=== PATIENT | female | born 1930 | race Caucasian/White ===

== ENCOUNTER 2016-06-11 19:11 | Emergency (ER) | payer MEDICARE, OTHER ==
--- NOTE | 2016-06-11 20:37 | ED ---
Doris Martinez Erika, scribed for Riley Rebolledo MD on 06/11/16 at 1953 . Complex/Multi-Sys Presentation - HPI Summary HPI Summary: Patient is an 86-year-old female presenting to the ED with a CC of weakness. Per EMS, patient lives at [facility], and was complaining of headache, weakness , and nausea for the past few hours. In the ED, patient denies any symptoms, including nausea and headache. She responds "I don't know" when asked if she is in any pain or if anything hurts. She states she is not hungry. LEVEL 5 CAVEAT - DEMENTIA. - History Of Current Complaint Time Seen by Provider: 06/11/16 19:21 Hx Obtained From: Patient, EMS Hx From Patient Unobtainable Due To: Dementia Onset/Duration: Resolved Associated Signs And Symptoms: Positive: Weakness, Headache, Nausea - Allergies/Home Medications Allergies/Adverse Reactions: Allergies Allergy/AdvReac Type Severity Reaction Status Date / Time No Known Allergies Allergy Verified 10/13/14 13:18 PMH/Surg Hx/FS Hx/Imm Hx Neurological History: Reports: Hx Dementia Psychiatric History: Reports: Hx Anxiety, Hx Depression - Surgical History Surgery Procedure, Year, and Place: eye surgery Infectious Disease History: Denies: History Other Infectious Disease - Family History Known Family History: Positive: Unknown - LEVEL 5 CAVEAT - Social History Lives: [facility] Alcohol Use: None Hx Substance Use: No Substance Use Type: Reports: None Hx Tobacco Use: No Smoking Status (MU): Never Smoked Tobacco Review of Systems - ROS Summary Review of Systems Summary: LEVEL 5 CAVEAT - DEMENTIA. Positive: Nausea Positive: Headache, Weakness All Other Systems Reviewed And Are Negative: No Physical Exam Triage Information Reviewed: Yes Vital Signs On Initial Exam: Temp Pulse Resp BP Pulse Ox 97.3 F 99 16 158/58 93 06/11/16 19:16 06/11/16 19:33 06/11/16 19:16 06/11/16 19:16 06/11/16 19:33 Vital Signs Reviewed: Yes Appearance: Positive: Well-Appearing, No Pain Distress Skin: Positive: Warm Head/Face: Positive: Normal Head/Face Inspection Eyes: Positive: KEILY ENT: Positive: Hearing grossly normal Neck: Positive: Supple Respiratory/Lung Sounds: Positive: Breath Sounds Present Cardiovascular: Positive: RRR Abdomen Description: Positive: Nontender, Soft Bowel Sounds: Positive: Present Musculoskeletal: Positive: Strength/ROM Intact Neurological: Positive: Sensory/Motor Intact Psychiatric: Positive: Affect/Mood Appropriate Diagnostics - Vital Signs Vital Signs Temp Pulse Resp BP Pulse Ox 06/11/16 20:00 83 141/102 97 06/11/16 19:55 160/72 06/11/16 19:33 99 93 06/11/16 19:16 97.3 F 86 16 158/58 94 06/11/16 19:14 158/58 - Laboratory Lab Statement: Any lab studies that have been ordered have been reviewed, and results considered in the medical decision making process. Re-Evaluation - Re-Evaluation First Eval Re-Evaluation Time: 21:42 Change: Improved Comment: Patient is tolerating liquids well. Family member present. Pt will be discharged at this time Complex Multi-Symp Course/Dx Assessment/Plan: An 86 y/o F presents to the ED. EMS reports that pt was complaining of nausea, headache, and weakness at her [place] [facility]. Upon arrival to the ED, patient denies any symptoms. Patient is PO challenged in the ED and is able to tolerate liquids well. Patient will be discharged to the [place] [facility] with follow up from her PCP, and pt and pt's nephew agree with this plan. - Diagnoses Provider Diagnoses: Nausea Discharge - Discharge Plan Condition: Stable Disposition: HOME Patient Education Materials: Acute Nausea and Vomiting (ED) Referrals: Skye Bain, [facility] [Primary Care Provider] - Additional Instructions: Please follow up with your PCP. The documentation as recorded by the Doris bloom Erika accurately reflects the service I personally performed and the decisions made by , Riley Rebolledo MD.
[2016-06-11 22:12] VITALS: BP 160/74
== END 2016-06-11 23:15 | disposition home or self-care (01) ==
LOC: ED 19:11
DX: R11.2 Nausea with vomiting, unspecified (principal); R51 Headache; R53.1 Weakness; F03.90 Unspecified dementia, unspecified severity, without behavioral disturbance, psychotic disturbance, mood disturbance, and anxiety
CPT/HCPCS: 99284

== ENCOUNTER 2017-04-21 20:21 | Inpatient (IN) | payer MEDICARE, OTHER ==
[2017-04-21] MEDS ORDERED: NS 0.9% 1000 ML* 1,000 ML IV ONE (20:47)
[2017-04-21 21:27] LABS: ABS Basophils 0.1 10^3/ul (0-0.2); ABS Eosinophils 0.2 10^3/ul (0-0.6); ABS Lymphocytes 1.9 10^3/ul (1.0-4.8); ABS Monocytes 0.6 10^3/ul (0-0.8); ABS Neutrophils 5.3 10^3/ul (1.5-7.7); ABS Nucleated RBC 0 10^3/ul; Eosinophil % 2.4 % (0-6); Hematocrit 32 % (35-47); Hemoglobin 10.7 g/dl (12.0-16.0); Lymphocyte % 23.6 % (25-47); Mean Corpuscular HGB Conc 34 g/dl (31-36); Mean Corpuscular Hemoglobin 30 pg (27-31); Mean Corpuscular Volume 88 fL (80-97); Mean Platelet Volume 8 um3 (7.4-10.4); Nucleated Red Blood Cells % 0; Platelet Count 241 10^3/ul (150-450); Red Blood Count 3.59 10^6/ul (4.0-5.4); Red Cell Distribution Width 15 % (10.5-15)
[2017-04-21 21:50] LABS: EGFR Non-African American 57.2 (>60)
[2017-04-21] MEDS ORDERED: Pantoprazole IV* 40 MG IV ONE (22:57)
[2017-04-22] MEDS ORDERED: Ondansetron INJ* 2 MG/ML VIAL IV PRN (00:39)
[2017-04-22] MEDS ORDERED: PROCHLORPERAZINE INJ 5 MG/ML 2 ML VIAL IV PRN (00:40)
[2017-04-22] MEDS ORDERED: NS 0.9% 1000 ML* 1,000 ML IV ONE (01:14)
[2017-04-22 01:21] LABS: Hematocrit 27 % (35-47); Hemoglobin 8.8 g/dl (12.0-16.0)
--- NOTE | 2017-04-22 01:21 | PN ---
Progress Note - Progress Note Date of Service: 04/22/17 Note: When pt arrived to the floor she was attempted to stand to get weighed and then began to retch but not vomit. She was transferred to the bed and was found to have had a very large red bloody BM, few small clots noted. Additionally the patient had a large bloody BM just prior to transfer to the floor. I am concerned that the patient may be having an upper GI bleed given her use of naproxen on a daily basis and her BUN being elevated. I have explained to the patient's nephew (at the hospital) and niece/HCP (by phone) that I am concerned for upper GI bleed. I offered the placement of an NG tube to evaluate for possible UGIB. They do not wish to pursue that. I have also offered transfer to a facility that has GI available for urgent EGD. They have discussed current options which I have explained as transfer for GI eval and EGD, medical management with IVF and blood transfusion vs comfort care. At this time they do not want to pursue transfer. Will await repeat blood draw results. If H/H dropped significantly will transfuse blood. Continue protonix drip and IVF. If she continues to bleed profusely they stated they will want to pursue comfort measures only at that time.
[2017-04-22] MEDS ORDERED: Pantoprazole IV* 40 MG ONE (03:14)
[2017-04-22] MEDS: Pantoprazole IV* 80 MG in NS 0.9% 250 ML* 250 ML IVPB SCH ×2 (03:23→12:15)
[2017-04-22] MEDS: NS 0.9% 1000 ML* 1,000 ML IV SCH ×2 (03:23→05:42)
[2017-04-22 06:28] LABS: Hematocrit 29 % (35-47); Hemoglobin 9.7 g/dl (12.0-16.0); Mean Corpuscular HGB Conc 34 g/dl (31-36); Mean Corpuscular Hemoglobin 29 pg (27-31); Mean Corpuscular Volume 87 fL (80-97); Mean Platelet Volume 9 um3 (7.4-10.4); Platelet Count 190 10^3/ul (150-450); Red Cell Distribution Width 15 % (10.5-15); White Blood Count 6.4 10^3/ul (3.5-10.8)
[2017-04-22 06:39] LABS: INR 0.95 (0.77-1.02)
--- NOTE | 2017-04-22 07:47 | RAD ---
Indication: Rectal bleeding. Comparison: November 19, 2014 CT. Technique: Supine and LEFT lateral decubitus abdomen views. Report: Negative for free air. Moderately large volume of stool present throughout the colon with only mild rectal distention. Negative for dilated bowel loops or significant air-fluid levels. Coarse calcifications at the level of the prostate consistent with chronic pancreatitis. RIGHT pelvic calcified uterine fibroid noted. Negative for mass effect. IMPRESSION: Negative for free air or bowel obstruction.
[2017-04-22] MEDS: Citalopram TAB* 10 MG PO SCH (08:21)
--- NOTE | 2017-04-22 09:23 | PN ---
Subjective Date of Service: 04/22/17 Interval History: Patient offers no c/o. She denies hunger, pain, nausea. Objective Active Medications: Citalopram Hydrobromide (Celexa Tab*) 5 mg PO QAM [facility] Last Admin: 04/22/17 08:21 Dose: 5 mg Sodium Chloride (Ns 0.9% 1000 Ml*) 1,000 mls @ 75 mls/hr IV PER RATE [facility] Stop: 04/22/17 12:19 Last Admin: 04/22/17 05:42 Dose: 75 mls/hr Pantoprazole Sodium 80 mg/ (Sodium Chloride) 250 mls @ 25 mls/hr IVPB Q10H [facility] Last Admin: 04/22/17 03:23 Dose: 25 mls/hr Mirtazapine (Remeron Tab*) 7.5 mg PO BEDTIME [facility] Ondansetron HCl (Zofran Inj*) 4 mg IV Q6H PRN PRN Reason: NAUSEA Prochlorperazine Edisylate (Compazine Inj*) 10 mg IV Q6H PRN PRN Reason: NAUSEA/VOMITING Oxygen Devices in Use Now: None Appearance: Alert, partly up in bed. In good spirits. Looks comfortable. Passive. Eyes: No Scleral Icterus Neck: NL Appearance and Movements; NL JVP, No Thyroid Enlargement, Masses Respiratory: Symmetrical Chest Expansion and Respiratory Effort, Clear to Auscultation, Clear to Percussion Cardiovascular: NL Sounds; No Murmurs; No JVD, RRR, No Edema, - Abdominal: NL Sounds; No Tenderness; No Distention, No Hepatosplenomegaly, - Extremities: No Edema, No Clubbing, Cyanosis, - Skin: No Rash or Ulcers, No Nodules or Sclerosis, - Neurological: NL Sensation - Oriented to person only. Fair verbal skills. She states she has 2 nephews but can't remember the name of either one. She gave her age as "old enough to know better" Result Diagrams: 04/22/17 06:14 04/22/17 06:14 Assess/Plan/Problems-Billing Assessment: - Patient Problems (1) Dementia Current Visit: Yes Status: Acute Code(s): F03.90 - UNSPECIFIED DEMENTIA WITHOUT BEHAVIORAL DISTURBANCE SNOMED Code(s): 48931983 Comment: I spoke to her nephew Valerio Matias. He agrees to comfort measures only. He will talk to his cousin in [place] who is the HCP. Hospice referral made. CM spoke with [facility] and they cannot accept her back until 04/24. Comfort care, MS, atropine, lorazepam ordered. (2) GI bleed Current Visit: Yes Status: Acute Code(s): K92.2 - GASTROINTESTINAL HEMORRHAGE, UNSPECIFIED SNOMED Code(s): 71027341 Comment: No more NSAID's. Omeprazole 20 mg bid ordered. Nephew understands that no blood tests or transfusions will be done.
--- NOTE | 2017-04-22 11:05 | HP ---
CC: Skye Bain NP.* HISTORY AND PHYSICAL: DATE OF ADMISSION: 04/21/17 PRIMARY CARE PROVIDER: Skye Bain NP. CHIEF COMPLAINT: Bright red blood per rectum. HISTORY OF PRESENT ILLNESS: Ms. Sanchez is an 87-year-old female who has a history of dementia, who is sent over from [place] after she had multiple bloody bowel movements. The note that came over from [facility] stated that she did complain of abdominal pain; however, currently she states she does not have any abdominal pain. The patient has advanced dementia and really is unable to provide any significant history. She does deny shortness of breath and she denies chest pain. PAST MEDICAL HISTORY: 1. Dementia. 2. Anxiety. 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 Other surgical history is unknown. MEDICATIONS: 1. Guaifenesin ER 600 mg p.o. q. 12 hours p.r.n. congestion. 2. Senna 2 tabs p.o. b.i.d. 3. Naproxen 375 mg p.o. daily. 4. Muscle rub cream 35 g topically twice daily. 5. Remeron 7.5 mg p.o. q. h.s. 6. Celexa 5 mg p.o. daily. ALLERGIES: No known drug allergies. FAMILY HISTORY: Unobtainable. SOCIAL HISTORY: The patient is . She has no children. Her niece Alpa is her power of workers compensation attorney and health care proxy. Her nephew Valerio lives locally and helps out in visits at [facility]. The patient reportedly does not smoke. REVIEW OF SYSTEMS: Essentially unobtainable. PHYSICAL EXAMINATION GENERAL: The patient is a well-developed elderly female lying in bed, in no acute distress. VITAL SIGNS: Blood pressure 122/52, pulse 90, respirations 21, temp 97.7, and O2 sat 98% on room air. HEENT: Pupils are equal and round. Extraocular movements intact. Oropharynx is clear. Oral mucosa is moist. There is no submandibular, cervical, or supraclavicular adenopathy. PULMONARY: Lungs are clear to auscultation bilaterally. CARDIAC: Normal S1 and S2. Regular, rate, and rhythm. There is a 2/6 systolic murmur heard best at the left sternal border. There is no lower extremity edema. ABDOMEN: Bowel sounds present. Abdomen is soft, nontender, and nondistended. MUSCULOSKELETAL: There is no cyanosis or clubbing of the digits. There is full active range of motion of all 4 extremities. SKIN: Warm and dry. There are no rashes. NEUROLOGIC: The patient has no focal deficits. She is quite confused. At one point she tries to touch my nose. PSYCH: Affect appears appropriate. LABORATORY DATA: WBC 8.0, hemoglobin 10.7, hematocrit 32, platelets 241. Sodium 137, potassium 4.1, chloride 103, CO2 of 28, BUN 30, creatinine 0.93, glucose 103, calcium 9.1, bilirubin 0.2, AST 24, ALT 15, alk phos 70, albumin 3.6. Abdominal x- ray to my evaluation, it appears the patient has a nonspecific bowel gas pattern. Significant amount of stool is noted. No free air is noted. ASSESSMENT AND PLAN: Ms. Sanchez is an 87-year-old female who has a history of dementia and anxiety who resides at [facility], now presents to the emergency room with bright red blood per rectum. 1. Bright red blood per rectum. The patient reportedly had bright red blood in her Depends; however, in the emergency room rectal exam revealed maroon to shruti colored stool. The patient's BUN is elevated at 30. She does take naproxen on a daily basis and I am suspicious her bleed may in fact be an upper GI bleed. Her hemoglobin is essentially stable from where it was approximately 1 month ago. The patient will have a follow up hemoglobin and hematocrit at approximately midnight tonight and then again in the morning. The patient has been typed and screened. At this point, I will not transfuse the patient. There is no GI coverage this evening. Tomorrow we will attempt to get GI evaluation for possible EGD. She will be on a clear liquid diet for now. I will also go ahead and start a Protonix drip given the elevated BUN and suspicion for upper GI bleed. 2. Anxiety. I will continue the patient's Celexa and Remeron. 3. Dementia. Continue supportive care. 4. DVT prophylaxis. According to the Adult Thrombosis Prophylaxis Risk Factor Assessment Guide the patient has a total risk factor score of 3 making her high risk. SCDs alone will be utilized as DVT prophylaxis. Code stats is DNR based on the patient's nephew's understanding of her prior wishes and out of hospital DNR that came from [facility]. TIME SPENT: 55 minutes was spent admitting this patient. [id number]/[facility] [place] #: [id number] MTDReina
[2017-04-22] MEDS ORDERED: LORazepam TAB(*) 0.5 MG SL PRN (11:13)
[2017-04-22] MEDS ORDERED: Morphine ORAL CONCENTRATE* 5 MG/0.25 ML ORAL.SYRIN SL PRN (11:13)
[2017-04-22] MEDS ORDERED: Atropine 1% (ORAL/SL)* 15 ML BTL SL PRN (11:13)
--- NOTE | 2017-04-22 20:53 | ED ---
Kannan Martinez Jennifer, scribed for Mynor Nogueira MD on 04/21/17 at 2048 . GI/ HPI - HPI Summary HPI Summary: The patient is an 87 year old female who presents with 3 episodes of GI bleeding that began today. She lives in [place] and was accompanied by a house aid who gave the history today. The patient has pain when she walks, but she denies abdominal pain. The patient has a history of Alzheimers disease and did not know she was in the ED today. LEVEL 5 CAVEAT: HPI limited due to dementia. - History of Current Complaint Chief Complaint: EDGIBleed Stated Complaint: RECTAL BLEEDING Hx Obtained From: Patient, Family/Link Cutter - housekeeping aid at [facility] Hx From Patient Unobtainable Due To: Dementia Onset/Duration: Started Hours Ago - this morning, Still Present Severity: Mild Current Severity: Mild Pain Intensity: 0 Associated Signs and Symptoms: Positive: Bright Red Blood w/Stool - 3 episodes. Negative: Abdominal Pain Aggravating Factor(s): Nothing Alleviating Factor(s): Nothing - Allergy/Home Medications Allergies/Adverse Reactions: Allergies Allergy/AdvReac Type Severity Reaction Status Date / Time No Known Allergies Allergy Verified 10/13/14 13:18 Home Medications: Home Medications Methyl Salicylate/Menthol [Muscle Rub Cream] 35 gm TOPICAL BID 04/21/17 [ History Confirmed 04/21/17] Naproxen TAB* [Naprosyn 375 mg TAB*] 375 mg PO DAILY WITH MEAL 04/21/17 [ History Confirmed 04/21/17] PMH/Surg Hx/FS Hx/Imm Hx Neurological History: Reports: Hx Dementia Psychiatric History: Reports: Hx Anxiety, Hx Depression - Surgical History Surgery Procedure, Year, and Place: eye surgery Infectious Disease History: No Infectious Disease History: Denies: History Other Infectious Disease, Traveled Outside the [place] in Last 30 Days - Family History Known Family History: Positive: Unknown - LEVEL 5 CAVEAT - Social History Alcohol Use: None Hx Substance Use: No Substance Use Type: Reports: None Hx Tobacco Use: No Smoking Status (MU): Never Smoked Tobacco Review of Systems Cardiovascular: Negative Respiratory: Negative Gastrointestinal: Other Positive: Other. Negative: Abdominal Pain Genitourinary: Other - Bloody stool Positive: dysuria Musculoskeletal: Negative Skin: Negative Neurological: Negative, Other Psychological: Other Positive: Anxious All Other Systems Reviewed And Are Negative: Yes - Comments Additional Review of Systems Comments: LEVEL 5 CAVEAT: ROS limited due to dementia. Physical Exam - Summary Physical Exam Summary: Appearance: Well-appearing, Well-nourished, no acute distress, forgetful, pleasant. No masses. Skin: Warm, Dry, No rash Eyes: Normal, PERRL, EOMI, sclera anicteric, normal conjunctival color. ENT: Normal Neck: Supple, nontender Respiratory: Clear to auscultation Cardiovascular: S1, S2, no murmur, no rub, no gallop Abdomen: Soft, nontender, no organomegaly Bowel sounds: Present. Rectal exam showed maroon stool. Musculoskeletal: Normal, Strength/ROM Intact, no edema, pulses symmetrical Neurological: Normal, A&Ox2, cranial nerves II-XII WNL, follows commands, gait not tested, sensation intact to pin and light touch Psychiatric: affect normal, behavior appropriate, dressed appropriately, judgment intact LEVEL 5 CAVEAT: Physical exam limited due to dementia. Triage Information Reviewed: Yes Vital Signs On Initial Exam: Initial Vitals Temp Pulse Resp BP Pulse Ox 97.7 F 68 20 148/39 95 04/21/17 20:24 04/21/17 20:24 04/21/17 20:24 04/21/17 20:24 04/21/17 20:24 Vital Signs Reviewed: Yes Diagnostics - Vital Signs Vital Signs Temp Pulse Resp BP Pulse Ox 04/21/17 20:24 97.7 F 68 20 148/39 95 - Laboratory Lab Results: Lab Results 04/21/17 04/21/17 04/21/17 Range/Units 20:15 20:15 20:15 WBC 8.0 (3.5-10.8) 10^3/ul RBC 3.59 L (4.0-5.4) 10^6/ul Hgb 10.7 L (12.0-16.0) g/dl Hct 32 L (35-47) % MCV 88 (80-97) fL MCH 30 (27-31) pg MCHC 34 (31-36) g/dl RDW 15 (10.5-15) % Plt Count 241 (150-450) 10^3/ul MPV 8 (7.4-10.4) um3 Neut % (Auto) 65.9 (38-83) % Lymph % (Auto) 23.6 L (25-47) % [place] % (Auto) 7.1 (1-9) % Eos % (Auto) 2.4 (0-6) % Baso % (Auto) 1.0 (0-2) % Absolute Neuts (auto) 5.3 (1.5-7.7) 10^3/ul Absolute Lymphs (auto) 1.9 (1.0-4.8) 10^3/ul Absolute Monos (auto) 0.6 (0-0.8) 10^3/ul Absolute Eos (auto) 0.2 (0-0.6) 10^3/ul Absolute Basos (auto) 0.1 (0-0.2) 10^3/ul Absolute Nucleated RBC 0 10^3/ul Nucleated RBC % 0 INR (Anticoag Therapy) (0.77-1.02) Sodium 137 (133-145) mmol/L Potassium 4.1 (3.5-5.0) mmol/L Chloride 103 (101-111) mmol/L Carbon Dioxide 28 (22-32) mmol/L Anion Gap 6 (2-11) mmol/L BUN 30 H (6-24) mg/dL Creatinine 0.93 (0.51-0.95) mg/dL Est GFR ( Amer) 73.5 (>60) Est GFR (Non-Af Amer) 57.2 (>60) BUN/Creatinine Ratio 32.3 H (8-20) Glucose 103 H (70-100) mg/dL Calcium 9.1 (8.6-10.3) mg/dL Total Bilirubin 0.20 (0.2-1.0) mg/dL AST 24 (13-39) U/L ALT 15 (7-52) U/L Alkaline Phosphatase 70 (34-104) U/L Total Protein 6.6 (6.4-8.9) g/dL Albumin 3.6 (3.2-5.2) g/dL Globulin 3.0 (2-4) g/dL Albumin/Globulin Ratio 1.2 (1-3) Blood Type O Positive Antibody Screen Negative Crossmatch See Detail 04/22/17 04/22/17 04/22/17 Range/Units 01:09 06:14 06:14 WBC (3.5-10.8) 10^3/ul RBC (4.0-5.4) 10^6/ul Hgb 8.8 L (12.0-16.0) g/dl Hct 27 L (35-47) % MCV (80-97) fL MCH (27-31) pg MCHC (31-36) g/dl RDW (10.5-15) % Plt Count (150-450) 10^3/ul MPV (7.4-10.4) um3 Neut % (Auto) (38-83) % Lymph % (Auto) (25-47) % [place] % (Auto) (1-9) % Eos % (Auto) (0-6) % Baso % (Auto) (0-2) % Absolute Neuts (auto) (1.5-7.7) 10^3/ul Absolute Lymphs (auto) (1.0-4.8) 10^3/ul Absolute Monos (auto) (0-0.8) 10^3/ul Absolute Eos (auto) (0-0.6) 10^3/ul Absolute Basos (auto) (0-0.2) 10^3/ul Absolute Nucleated RBC 10^3/ul Nucleated RBC % INR (Anticoag Therapy) 0.95 (0.77-1.02) Sodium 138 (133-145) mmol/L Potassium 4.6 (3.5-5.0) mmol/L Chloride 112 H (101-111) mmol/L Carbon Dioxide 22 (22-32) mmol/L Anion Gap 4 (2-11) mmol/L BUN 30 H (6-24) mg/dL Creatinine 0.79 (0.51-0.95) mg/dL Est GFR ( Amer) 88.7 (>60) Est GFR (Non-Af Amer) 69.0 (>60) BUN/Creatinine Ratio 38.0 H (8-20) Glucose 109 H (70-100) mg/dL Calcium 7.8 L (8.6-10.3) mg/dL Total Bilirubin (0.2-1.0) mg/dL AST (13-39) U/L ALT (7-52) U/L Alkaline Phosphatase (34-104) U/L Total Protein (6.4-8.9) g/dL Albumin (3.2-5.2) g/dL Globulin (2-4) g/dL Albumin/Globulin Ratio (1-3) Blood Type Antibody Screen Crossmatch 04/22/17 Range/Units 06:14 WBC 6.4 (3.5-10.8) 10^3/ul RBC 3.30 L (4.0-5.4) 10^6/ul Hgb 9.7 L (12.0-16.0) g/dl Hct 29 L (35-47) % MCV 87 (80-97) fL MCH 29 (27-31) pg MCHC 34 (31-36) g/dl RDW 15 (10.5-15) % Plt Count 190 (150-450) 10^3/ul MPV 9 (7.4-10.4) um3 Neut % (Auto) (38-83) % Lymph % (Auto) (25-47) % [place] % (Auto) (1-9) % Eos % (Auto) (0-6) % Baso % (Auto) (0-2) % Absolute Neuts (auto) (1.5-7.7) 10^3/ul Absolute Lymphs (auto) (1.0-4.8) 10^3/ul Absolute Monos (auto) (0-0.8) 10^3/ul Absolute Eos (auto) (0-0.6) 10^3/ul Absolute Basos (auto) (0-0.2) 10^3/ul Absolute Nucleated RBC 10^3/ul Nucleated RBC % INR (Anticoag Therapy) (0.77-1.02) Sodium (133-145) mmol/L Potassium (3.5-5.0) mmol/L Chloride (101-111) mmol/L Carbon Dioxide (22-32) mmol/L Anion Gap (2-11) mmol/L BUN (6-24) mg/dL Creatinine (0.51-0.95) mg/dL Est GFR ( Amer) (>60) Est GFR (Non-Af Amer) (>60) BUN/Creatinine Ratio (8-20) Glucose (70-100) mg/dL Calcium (8.6-10.3) mg/dL Total Bilirubin (0.2-1.0) mg/dL AST (13-39) U/L ALT (7-52) U/L Alkaline Phosphatase (34-104) U/L Total Protein (6.4-8.9) g/dL Albumin (3.2-5.2) g/dL Globulin (2-4) g/dL Albumin/Globulin Ratio (1-3) Blood Type Antibody Screen Crossmatch Result Diagrams: 04/22/17 06:14 04/22/17 06:14 Lab Statement: Any lab studies that have been ordered have been reviewed, and results considered in the medical decision making process. - Radiology Abdominal XR Xray Interpretation: No Acute Changes - No acute findings. Dr. Nogueira has reviewed this report. Radiology Interpretation Completed By: Radiologist DOROTHY Course/Dx - Course Assessment/Plan: The patient is an 87 year old female who presents with 3 episodes of GI bleeding that began today. She has a history of dementia. In the ED course the patient was given IV fluids. Bloodwork was obtained. Abdominal XR was obtained. The patient is diagnosed with GI bleeding, probably lower GI bleeding. The patient will be admitted to [facility] [place]. - Diagnoses Provider Diagnoses: Upper GI bleeding Discharge - Discharge Plan Condition: Good Disposition: ADMITTED TO [facility] The documentation as recorded by the Kannan bloom Jennifer accurately reflects the service I personally performed and the decisions made by , Mynor Nogueira MD.
[2017-04-22] MEDS: Mirtazapine TAB* 15 MG PO SCH (21:32)
[2017-04-22] MEDS: Omeprazole CAP* 20 MG PO SCH (21:32)
[2017-04-23] MEDS: Omeprazole CAP* 20 MG PO SCH ×2 (07:11→19:57)
[2017-04-23] MEDS: Citalopram TAB* 10 MG PO SCH (07:11)
--- NOTE | 2017-04-23 15:45 | PN ---
Subjective Date of Service: 04/23/17 Interval History: No complaints no e/o additional bleeding Objective Active Medications: Atropine Sulfate (Atropine 1% (Oral/Sl)*) 2 drop SL Q2H PRN PRN Reason: DISCOMFORT Citalopram Hydrobromide (Celexa Tab*) 5 mg PO QAM [facility] Last Admin: 04/23/17 07:11 Dose: Not Given Lorazepam (Ativan Tab(*)) 0.5 mg SL Q4H PRN PRN Reason: ANXIETY Mirtazapine (Remeron Tab*) 7.5 mg PO BEDTIME [facility] Last Admin: 04/22/17 21:32 Dose: Not Given Morphine Sulfate (Morphine Oral Concentrate*) 5 mg SL Q30M PRN PRN Reason: PAIN Omeprazole (Prilosec Cap*) 20 mg PO BID [facility] Last Admin: 04/23/17 07:11 Dose: Not Given Oxygen Devices in Use Now: None Appearance: elderly, lying flat, NAD Neurological: - - Aox1 to self Result Diagrams: 04/22/17 06:14 04/22/17 06:14 Additional Lab and Data: Lab Results 04/21/17 04/21/17 04/21/17 Range/Units 20:15 20:15 20:15 WBC 8.0 (3.5-10.8) 10^3/ul RBC 3.59 L (4.0-5.4) 10^6/ul Hgb 10.7 L (12.0-16.0) g/dl Hct 32 L (35-47) % MCV 88 (80-97) fL MCH 30 (27-31) pg MCHC 34 (31-36) g/dl RDW 15 (10.5-15) % Plt Count 241 (150-450) 10^3/ul MPV 8 (7.4-10.4) um3 Neut % (Auto) 65.9 (38-83) % Lymph % (Auto) 23.6 L (25-47) % [place] % (Auto) 7.1 (1-9) % Eos % (Auto) 2.4 (0-6) % Baso % (Auto) 1.0 (0-2) % Absolute Neuts (auto) 5.3 (1.5-7.7) 10^3/ul Absolute Lymphs (auto) 1.9 (1.0-4.8) 10^3/ul Absolute Monos (auto) 0.6 (0-0.8) 10^3/ul Absolute Eos (auto) 0.2 (0-0.6) 10^3/ul Absolute Basos (auto) 0.1 (0-0.2) 10^3/ul Absolute Nucleated RBC 0 10^3/ul Nucleated RBC % 0 INR (Anticoag Therapy) (0.77-1.02) Sodium 137 (133-145) mmol/L Potassium 4.1 (3.5-5.0) mmol/L Chloride 103 (101-111) mmol/L Carbon Dioxide 28 (22-32) mmol/L Anion Gap 6 (2-11) mmol/L BUN 30 H (6-24) mg/dL Creatinine 0.93 (0.51-0.95) mg/dL Est GFR ( Amer) 73.5 (>60) Est GFR (Non-Af Amer) 57.2 (>60) BUN/Creatinine Ratio 32.3 H (8-20) Glucose 103 H (70-100) mg/dL Calcium 9.1 (8.6-10.3) mg/dL Total Bilirubin 0.20 (0.2-1.0) mg/dL AST 24 (13-39) U/L ALT 15 (7-52) U/L Alkaline Phosphatase 70 (34-104) U/L Total Protein 6.6 (6.4-8.9) g/dL Albumin 3.6 (3.2-5.2) g/dL Globulin 3.0 (2-4) g/dL Albumin/Globulin Ratio 1.2 (1-3) Blood Type O Positive Antibody Screen Negative Crossmatch See Detail 04/22/17 04/22/17 04/22/17 Range/Units 01:09 06:14 06:14 WBC (3.5-10.8) 10^3/ul RBC (4.0-5.4) 10^6/ul Hgb 8.8 L (12.0-16.0) g/dl Hct 27 L (35-47) % MCV (80-97) fL MCH (27-31) pg MCHC (31-36) g/dl RDW (10.5-15) % Plt Count (150-450) 10^3/ul MPV (7.4-10.4) um3 Neut % (Auto) (38-83) % Lymph % (Auto) (25-47) % [place] % (Auto) (1-9) % Eos % (Auto) (0-6) % Baso % (Auto) (0-2) % Absolute Neuts (auto) (1.5-7.7) 10^3/ul Absolute Lymphs (auto) (1.0-4.8) 10^3/ul Absolute Monos (auto) (0-0.8) 10^3/ul Absolute Eos (auto) (0-0.6) 10^3/ul Absolute Basos (auto) (0-0.2) 10^3/ul Absolute Nucleated RBC 10^3/ul Nucleated RBC % INR (Anticoag Therapy) 0.95 (0.77-1.02) Sodium 138 (133-145) mmol/L Potassium 4.6 (3.5-5.0) mmol/L Chloride 112 H (101-111) mmol/L Carbon Dioxide 22 (22-32) mmol/L Anion Gap 4 (2-11) mmol/L BUN 30 H (6-24) mg/dL Creatinine 0.79 (0.51-0.95) mg/dL Est GFR ( Amer) 88.7 (>60) Est GFR (Non-Af Amer) 69.0 (>60) BUN/Creatinine Ratio 38.0 H (8-20) Glucose 109 H (70-100) mg/dL Calcium 7.8 L (8.6-10.3) mg/dL Total Bilirubin (0.2-1.0) mg/dL AST (13-39) U/L ALT (7-52) U/L Alkaline Phosphatase (34-104) U/L Total Protein (6.4-8.9) g/dL Albumin (3.2-5.2) g/dL Globulin (2-4) g/dL Albumin/Globulin Ratio (1-3) Blood Type Antibody Screen Crossmatch 04/22/17 Range/Units 06:14 WBC 6.4 (3.5-10.8) 10^3/ul RBC 3.30 L (4.0-5.4) 10^6/ul Hgb 9.7 L (12.0-16.0) g/dl Hct 29 L (35-47) % MCV 87 (80-97) fL MCH 29 (27-31) pg MCHC 34 (31-36) g/dl RDW 15 (10.5-15) % Plt Count 190 (150-450) 10^3/ul MPV 9 (7.4-10.4) um3 Neut % (Auto) (38-83) % Lymph % (Auto) (25-47) % [place] % (Auto) (1-9) % Eos % (Auto) (0-6) % Baso % (Auto) (0-2) % Absolute Neuts (auto) (1.5-7.7) 10^3/ul Absolute Lymphs (auto) (1.0-4.8) 10^3/ul Absolute Monos (auto) (0-0.8) 10^3/ul Absolute Eos (auto) (0-0.6) 10^3/ul Absolute Basos (auto) (0-0.2) 10^3/ul Absolute Nucleated RBC 10^3/ul Nucleated RBC % INR (Anticoag Therapy) (0.77-1.02) Sodium (133-145) mmol/L Potassium (3.5-5.0) mmol/L Chloride (101-111) mmol/L Carbon Dioxide (22-32) mmol/L Anion Gap (2-11) mmol/L BUN (6-24) mg/dL Creatinine (0.51-0.95) mg/dL Est GFR ( Amer) (>60) Est GFR (Non-Af Amer) (>60) BUN/Creatinine Ratio (8-20) Glucose (70-100) mg/dL Calcium (8.6-10.3) mg/dL Total Bilirubin (0.2-1.0) mg/dL AST (13-39) U/L ALT (7-52) U/L Alkaline Phosphatase (34-104) U/L Total Protein (6.4-8.9) g/dL Albumin (3.2-5.2) g/dL Globulin (2-4) g/dL Albumin/Globulin Ratio (1-3) Blood Type Antibody Screen Crossmatch Assess/Plan/Problems-Billing Assessment: 87 F h/o dementia p/w GIB now comfort care - Patient Problems (1) Comfort measures only status Comment: atropine, morphine, ativan PRN (2) Dementia Comment: Dr. Bates discussed withermias Matias who d/w cousin in [place] who is the HCP. Now comfort measures only Hospice referral made. CM spoke with [facility] and they cannot accept her back until 04/24. (3) GI bleed Comment: No more NSAID's. Omeprazole 20 mg bid ordered. Nephew understands that no blood tests or transfusions will be done.
[2017-04-23] MEDS: Mirtazapine TAB* 15 MG PO SCH (19:57)
[2017-04-24] MEDS: Omeprazole CAP* 20 MG PO SCH ×2 (08:30→22:31)
[2017-04-24] MEDS: Citalopram TAB* 10 MG PO SCH (08:30)
[2017-04-24 14:47] VITALS: BP 00/00
--- NOTE | 2017-04-24 19:02 | PN ---
Subjective Date of Service: 04/24/17 Interval History: No complaints Pleasantly demented Objective Active Medications: Atropine Sulfate (Atropine 1% (Oral/Sl)*) 2 drop SL Q2H PRN PRN Reason: DISCOMFORT Citalopram Hydrobromide (Celexa Tab*) [address] [facility] Last Admin: 04/24/17 08:30 Dose: Not Given Lorazepam (Ativan Tab(*)) 0.5 mg SL Q4H PRN PRN Reason: ANXIETY Mirtazapine (Remeron Tab*) 7.[address] [facility] Last Admin: 04/23/17 19:57 Dose: Not Given Morphine Sulfate (Morphine Oral Concentrate*) 5 mg SL Q30M PRN PRN Reason: PAIN Omeprazole (Prilosec Cap*) [address] [facility] Last Admin: 04/24/17 08:30 Dose: Not Given Vital Signs - 8 hr 04/24/17 14:25 Temperature 98 F Pulse Rate 74 Respiratory 18 Rate Blood Pressure 00/00 (mmHg) O2 Sat by Pulse 95 Oximetry Oxygen Devices in Use Now: None Appearance: NAD Eyes: No Scleral Icterus Ears/Nose/Mouth/Throat: Clear Oropharnyx, Mucous Membranes Moist Neck: NL Appearance and Movements; NL JVP Respiratory: Symmetrical Chest Expansion and Respiratory Effort Cardiovascular: RRR Neurological: - - Aox1 Result Diagrams: 04/22/17 06:14 04/22/17 06:14 Additional Lab and Data: Lab Results 04/21/17 04/21/17 04/21/17 Range/Units 20:15 20:15 20:15 WBC 8.0 (3.5-10.8) 10^3/ul RBC 3.59 L (4.0-5.4) 10^6/ul Hgb 10.7 L (12.0-16.0) g/dl Hct 32 L (35-47) % MCV 88 (80-97) fL MCH 30 (27-31) pg MCHC 34 (31-36) g/dl RDW 15 (10.5-15) % Plt Count 241 (150-450) 10^3/ul MPV 8 (7.4-10.4) um3 Neut % (Auto) 65.9 (38-83) % Lymph % (Auto) 23.6 L (25-47) % [place] % (Auto) 7.1 (1-9) % Eos % (Auto) 2.4 (0-6) % Baso % (Auto) 1.0 (0-2) % Absolute Neuts (auto) 5.3 (1.5-7.7) 10^3/ul Absolute Lymphs (auto) 1.9 (1.0-4.8) 10^3/ul Absolute Monos (auto) 0.6 (0-0.8) 10^3/ul Absolute Eos (auto) 0.2 (0-0.6) 10^3/ul Absolute Basos (auto) 0.1 (0-0.2) 10^3/ul Absolute Nucleated RBC 0 10^3/ul Nucleated RBC % 0 INR (Anticoag Therapy) (0.77-1.02) Sodium 137 (133-145) mmol/L Potassium 4.1 (3.5-5.0) mmol/L Chloride 103 (101-111) mmol/L Carbon Dioxide 28 (22-32) mmol/L Anion Gap 6 (2-11) mmol/L BUN 30 H (6-24) mg/dL Creatinine 0.93 (0.51-0.95) mg/dL Est GFR ( Amer) 73.5 (>60) Est GFR (Non-Af Amer) 57.2 (>60) BUN/Creatinine Ratio 32.3 H (8-20) Glucose 103 H (70-100) mg/dL Calcium 9.1 (8.6-10.3) mg/dL Total Bilirubin 0.20 (0.2-1.0) mg/dL AST 24 (13-39) U/L ALT 15 (7-52) U/L Alkaline Phosphatase 70 (34-104) U/L Total Protein 6.6 (6.4-8.9) g/dL Albumin 3.6 (3.2-5.2) g/dL Globulin 3.0 (2-4) g/dL Albumin/Globulin Ratio 1.2 (1-3) Blood Type O Positive Antibody Screen Negative Crossmatch See Detail 04/22/17 04/22/17 04/22/17 Range/Units 01:09 06:14 06:14 WBC (3.5-10.8) 10^3/ul RBC (4.0-5.4) 10^6/ul Hgb 8.8 L (12.0-16.0) g/dl Hct 27 L (35-47) % MCV (80-97) fL MCH (27-31) pg MCHC (31-36) g/dl RDW (10.5-15) % Plt Count (150-450) 10^3/ul MPV (7.4-10.4) um3 Neut % (Auto) (38-83) % Lymph % (Auto) (25-47) % [place] % (Auto) (1-9) % Eos % (Auto) (0-6) % Baso % (Auto) (0-2) % Absolute Neuts (auto) (1.5-7.7) 10^3/ul Absolute Lymphs (auto) (1.0-4.8) 10^3/ul Absolute Monos (auto) (0-0.8) 10^3/ul Absolute Eos (auto) (0-0.6) 10^3/ul Absolute Basos (auto) (0-0.2) 10^3/ul Absolute Nucleated RBC 10^3/ul Nucleated RBC % INR (Anticoag Therapy) 0.95 (0.77-1.02) Sodium 138 (133-145) mmol/L Potassium 4.6 (3.5-5.0) mmol/L Chloride 112 H (101-111) mmol/L Carbon Dioxide 22 (22-32) mmol/L Anion Gap 4 (2-11) mmol/L BUN 30 H (6-24) mg/dL Creatinine 0.79 (0.51-0.95) mg/dL Est GFR ( Amer) 88.7 (>60) Est GFR (Non-Af Amer) 69.0 (>60) BUN/Creatinine Ratio 38.0 H (8-20) Glucose 109 H (70-100) mg/dL Calcium 7.8 L (8.6-10.3) mg/dL Total Bilirubin (0.2-1.0) mg/dL AST (13-39) U/L ALT (7-52) U/L Alkaline Phosphatase (34-104) U/L Total Protein (6.4-8.9) g/dL Albumin (3.2-5.2) g/dL Globulin (2-4) g/dL Albumin/Globulin Ratio (1-3) Blood Type Antibody Screen Crossmatch 04/22/17 Range/Units 06:14 WBC 6.4 (3.5-10.8) 10^3/ul RBC 3.30 L (4.0-5.4) 10^6/ul Hgb 9.7 L (12.0-16.0) g/dl Hct 29 L (35-47) % MCV 87 (80-97) fL MCH 29 (27-31) pg MCHC 34 (31-36) g/dl RDW 15 (10.5-15) % Plt Count 190 (150-450) 10^3/ul MPV 9 (7.4-10.4) um3 Neut % (Auto) (38-83) % Lymph % (Auto) (25-47) % [place] % (Auto) (1-9) % Eos % (Auto) (0-6) % Baso % (Auto) (0-2) % Absolute Neuts (auto) (1.5-7.7) 10^3/ul Absolute Lymphs (auto) (1.0-4.8) 10^3/ul Absolute Monos (auto) (0-0.8) 10^3/ul Absolute Eos (auto) (0-0.6) 10^3/ul Absolute Basos (auto) (0-0.2) 10^3/ul Absolute Nucleated RBC 10^3/ul Nucleated RBC % INR (Anticoag Therapy) (0.77-1.02) Sodium (133-145) mmol/L Potassium (3.5-5.0) mmol/L Chloride (101-111) mmol/L Carbon Dioxide (22-32) mmol/L Anion Gap (2-11) mmol/L BUN (6-24) mg/dL Creatinine (0.51-0.95) mg/dL Est GFR ( Amer) (>60) Est GFR (Non-Af Amer) (>60) BUN/Creatinine Ratio (8-20) Glucose (70-100) mg/dL Calcium (8.6-10.3) mg/dL Total Bilirubin (0.2-1.0) mg/dL AST (13-39) U/L ALT (7-52) U/L Alkaline Phosphatase (34-104) U/L Total Protein (6.4-8.9) g/dL Albumin (3.2-5.2) g/dL Globulin (2-4) g/dL Albumin/Globulin Ratio (1-3) Blood Type Antibody Screen Crossmatch Assess/Plan/Problems-Billing Assessment: 87 F h/o dementia p/w GIB now comfort care - Patient Problems (1) Comfort measures only status Comment: atropine, morphine, ativan PRN (2) Dementia Comment: Dr. Bates discussed withnephew Valerio Matias who d/w cousin in [place] who is the HCP. Now comfort measures only Hospice referral made. [facility] has not yet accepted back (3) GI bleed Comment: No more NSAID's. Omeprazole 20 mg bid ordered. Nephew understands that no blood tests or transfusions will be done.
[2017-04-24] MEDS: Mirtazapine TAB* 15 MG PO SCH (22:31)
[2017-04-25] MEDS: Citalopram TAB* 10 MG PO SCH (09:27)
[2017-04-25] MEDS: Omeprazole CAP* 20 MG PO SCH ×2 (09:27→21:11)
--- NOTE | 2017-04-25 09:56 | CONSULT ---
Palliative / Hospice Consult Ordering Provider: dAán Bates - Subjective Code Status: DNR Advance Directives Location: In Chart MOLST Part A Completed: Yes - DNR Date: 04/21/17 MOLST Part E Completed:: Yes Date: 04/25/17 HCP Completed: - Valerio Matias - History or Present Illness History or Present Illness: This 87 year old woman with a PMH of only dementia and anxiety has been living at [facility] dementia unit, [facility].. She was sent to the hospital 04/21/17 with hematochezia, initially BRBPR but becoming maroon, c/w lower GI bleed. The patient was started on PPI therapy, as she had a hx of NSAID use. Abdominal xray was unrevealing of any pathology except for a suggestion of chronic pancreatitis. The patient has no family, and her decision-maker is Valerio Matias, who continued her DNR status and expressed interest in comfort measures only. Since 04/22, it appears that the patient has had no bowel movements recorded. Her last H/H on 04/22 was 9.7/29, down from 10.7/32 on 04/21. On 04/22, the decision was made by patient's nephew and his cousin in [place] (the actual HCP ) that no further testing would be done, no transfusions would be offered, and comfort care would be pursued. There is no history available on this patient's baseline level of function. [facility] the [facility] because at this point she is not ambulatory, and is total care. Furthermore, the patient has, according to Leonie, lost 12 pounds within the last 6 months, and continues to show diminished appetite and poor po intake. Lab Values: Laboratory Last Values WBC 6.4 10^3/ul (3.5-10.8) 04/22/17 06:14 RBC 3.30 10^6/ul (4.0-5.4) L 04/22/17 06:14 Hgb 9.7 g/dl (12.0-16.0) L 04/22/17 06:14 Hct 29 % (35-47) L 04/22/17 06:14 MCV 87 fL (80-97) 04/22/17 06:14 MCH 29 pg (27-31) 04/22/17 06:14 MCHC 34 g/dl (31-36) 04/22/17 06:14 RDW 15 % (10.5-15) 04/22/17 06:14 Plt Count 190 10^3/ul (150-450) 04/22/17 06:14 MPV 9 um3 (7.4-10.4) 04/22/17 06:14 Neut % (Auto) 65.9 % (38-83) 04/21/17 20:15 Lymph % (Auto) 23.6 % (25-47) L 04/21/17 20:15 [place] % (Auto) 7.1 % (1-9) 04/21/17 20:15 Eos % (Auto) 2.4 % (0-6) 04/21/17 20:15 Baso % (Auto) 1.0 % (0-2) 04/21/17 20:15 Absolute Neuts (auto) 5.3 10^3/ul (1.5-7.7) 04/21/17 20:15 Absolute Lymphs (auto) 1.9 10^3/ul (1.0-4.8) 04/21/17 20:15 Absolute Monos (auto) 0.6 10^3/ul (0-0.8) 04/21/17 20:15 Absolute Eos (auto) 0.2 10^3/ul (0-0.6) 04/21/17 20:15 Absolute Basos (auto) 0.1 10^3/ul (0-0.2) 04/21/17 20:15 Absolute Nucleated RBC 0 10^3/ul 04/21/17 20:15 Nucleated RBC % 0 04/21/17 20:15 INR (Anticoag Therapy) 0.95 (0.77-1.02) 04/22/17 06:14 Sodium 138 mmol/L (133-145) 04/22/17 06:14 Potassium 4.6 mmol/L (3.5-5.0) 04/22/17 06:14 Chloride 112 mmol/L (101-111) H 04/22/17 06:14 Carbon Dioxide 22 mmol/L (22-32) 04/22/17 06:14 Anion Gap 4 mmol/L (2-11) 04/22/17 06:14 BUN 30 mg/dL (6-24) H 04/22/17 06:14 Creatinine 0.79 mg/dL (0.51-0.95) 04/22/17 06:14 Est GFR ( Amer) 88.7 (>60) 04/22/17 06:14 Est GFR (Non-Af Amer) 69.0 (>60) 04/22/17 06:14 BUN/Creatinine Ratio 38.0 (8-20) H 04/22/17 06:14 Glucose 109 mg/dL (70-100) H 04/22/17 06:14 Calcium 7.8 mg/dL (8.6-10.3) L 04/22/17 06:14 Total Bilirubin 0.20 mg/dL (0.2-1.0) 04/21/17 20:15 AST 24 U/L (13-39) 04/21/17 20:15 ALT 15 U/L (7-52) 04/21/17 20:15 Alkaline Phosphatase 70 U/L (34-104) 04/21/17 20:15 Total Protein 6.6 g/dL (6.4-8.9) 04/21/17 20:15 Albumin 3.6 g/dL (3.2-5.2) 04/21/17 20:15 Globulin 3.0 g/dL (2-4) 04/21/17 20:15 Albumin/Globulin Ratio 1.2 (1-3) 04/21/17 20:15 Blood Type O Positive 04/21/17 20:15 Antibody Screen Negative 04/21/17 20:15 Crossmatch See Detail 04/21/17 20:15 - Objective Active Medications: Atropine Sulfate (Atropine 1% (Oral/Sl)*) 2 drop SL Q2H PRN PRN Reason: DISCOMFORT Citalopram Hydrobromide (Celexa Tab*) 5 mg PO QAM [facility] Last Admin: 04/25/17 09:27 Dose: Not Given Lorazepam (Ativan Tab(*)) 0.5 mg SL Q4H PRN PRN Reason: ANXIETY Mirtazapine (Remeron Tab*) 7.5 mg PO BEDTIME [facility] Last Admin: 04/24/17 22:31 Dose: Not Given Morphine Sulfate (Morphine Oral Concentrate*) 5 mg SL Q30M PRN PRN Reason: PAIN Omeprazole (Prilosec Cap*) 20 mg PO BID [facility] Last Admin: 04/25/17 09:27 Dose: Not Given Vital Signs: Vital Signs: Temp Pulse Resp BP Pulse Ox 98 F 74 18 95 04/24/17 14:25 04/24/17 14:25 04/24/17 20:52 04/24/17 14:25 04/24/17 14:25 Intake and Output: Intake & Output 04/23/17 04/24/17 04/25/17 04/26/17 06:59 06:59 06:59 06:59 Intake Total 432 80 300 Output Total 0 0 Balance 432 80 300 Intake: IV Fluids 432 Oral 0 80 300 Output: Urine 0 0 Other: Estimated Void Medium Small Small # Bowel Movements 0 0 # Voids 1 2 1 ADLs: Meal Record Start: 04/21/17 23: 47 Freq: DAILY@0900,1400,1800 Status: Active Protocol: Created 04/21/17 23:47 System (Rec: 04/21/17 23:47 System [id number]) Document 04/22/17 09:00 [id number] (Rec: 04/22/17 15:43 [id number] TELE-C07) Document 04/22/17 14:00 [id number] (Rec: 04/22/17 15:43 [id number] TELE-C07) Document 04/22/17 18:00 [id number] (Rec: 04/22/17 19:06 [id number] TELE-C11) Document 04/23/17 09:00 [id number] (Rec: 04/23/17 14:29 [id number] TELE-C07) Document 04/23/17 14:00 [id number] (Rec: 04/23/17 14:29 [id number] TELE-C07) Document 04/23/17 18:00 [id number] (Rec: 04/23/17 19:50 [id number] TELE-C06) Document 04/24/17 08:52 [id number] (Rec: 04/24/17 08:52 [id number] TELE-C01) Document 04/24/17 09:49 [id number] (Rec: 04/24/17 09:49 [id number] TELE-C01) Document 04/24/17 13:21 [id number] (Rec: 04/24/17 13:22 [id number] TELE-C01) Document 04/24/17 18:00 [id number] (Rec: 04/24/17 20:30 [id number] MED-C11) Intake and Output Start: 04/21/17 23: 47 Freq: DAILY@0600,1400,2200 Status: Active Protocol: Created 04/21/17 23:47 System (Rec: 04/21/17 23:47 System TELE-M04) Document 04/22/17 06:00 [id number] (Rec: 04/22/17 07:36 [id number] TELE-C35) Document 04/22/17 22:00 [id number] (Rec: 04/22/17 22:08 [id number] TELE-C11) Document 04/23/17 06:00 [id number] (Rec: 04/23/17 06:29 [id number] TELE-C11) Document 04/23/17 14:00 [id number] (Rec: 04/23/17 14:29 [id number] TELE-C07) Document 04/23/17 21:34 [id number] (Rec: 04/23/17 21:35 [id number] TELE-C13) Document 04/24/17 05:12 [id number] (Rec: 04/24/17 05:13 [id number] TELE-C35) Document 04/24/17 12:55 [id number] (Rec: 04/24/17 12:55 [id number] TELE-C01) Document 04/24/17 21:40 [id number] (Rec: 04/24/17 21:41 [id number] MED-C11) Document 04/25/17 06:00 [id number] (Rec: 04/25/17 06:40 [id number] MED-C42) General Impression: Very demented, Ox0, woman lying in bed in NAD. Head: Symmetrical Eyes: No Scleral Icterus Ears/Nose/Mouth/Throat: Clear Oropharnyx, Mucous Membranes Moist Neck: NL Appearance and Movements; NL JVP Cardiovascular: RRR Abdominal: NL Sounds; No Tenderness; No Distention, No Hepatosplenomegaly, - Extremities: No Edema, No Clubbing, Cyanosis, - Neurological: - - Aox0 - Assessment Assessment: This patient has had a GI bleed, which presented as most characteristic of a lower GI bleed, but she is not a candidate for intervention or for further investigation. However, it appears that her GI bleeding has stopped, at least for the time being. I have taken the liberty of checking one more H/H to assess whether there is evidence of further loss since 04/22/17. Her Hb is stable at 9.9 , HCT 29. The patient is nonverbal except for a few words, and appears to be totally dependent as far as ADLs are concerned, and is incontinent of bowel and bladder, so would qualify for hospice services on the basis of dementia, with a secondary diagnosis of GI bleeding. She can not be returned to [facility], as they will not accept her level of debility, but she could be discharged to a SNF and be brought onto hospice services there. I attempted to reach Valerio Matias to discuss this with him, and left a message on his machine to call me back. Thank you for asking for palliative input. Addendum: I did reach Valerio Robertson, and he referred me to the patient's niece and HCP, Zenia Cisneros, in [place] [phone]. Zenia would like only comfort measures and wants the patient considered for the [facility] residence. We also completed the MOLST Part E together, specifying comfort measures only, over the phone. This patient should either go to [facility] or a SNF. - Plan Consult Plan (MU): Hospice - Time On Unit Date of Evaluation: 04/25/17 Hospice Consult Time in: 09:30 Hospice Consult Time Out: 10:50 Hospice Consult Time Total: 80 > 50% of Time Spend In Counseling or Coordinating Care: Yes
[2017-04-25 10:10] LABS: Hematocrit 29 % (35-47); Hemoglobin 9.9 g/dl (12.0-16.0)
--- NOTE | 2017-04-25 18:04 | PN ---
Subjective Date of Service: 04/25/17 Interval History: Decreased mental status, now AIx0. Unable to make needs known Objective Active Medications: Atropine Sulfate (Atropine 1% (Oral/Sl)*) 2 drop SL Q2H PRN PRN Reason: DISCOMFORT Citalopram Hydrobromide (Celexa Tab*) 5 mg PO QAM [facility] Last Admin: 04/25/17 09:27 Dose: Not Given Lorazepam (Ativan Tab(*)) 0.5 mg SL Q4H PRN PRN Reason: ANXIETY Mirtazapine (Remeron Tab*) 7.5 mg PO BEDTIME [facility] Last Admin: 04/24/17 22:31 Dose: Not Given Morphine Sulfate (Morphine Oral Concentrate*) 5 mg SL Q30M PRN PRN Reason: PAIN Omeprazole (Prilosec Cap*) 20 mg PO BID [facility] Last Admin: 04/25/17 09:27 Dose: Not Given Oxygen Devices in Use Now: None Appearance: frail, rest of exam deferred for comfort Result Diagrams: 04/25/17 09:58 04/22/17 06:14 Additional Lab and Data: Lab Results 04/21/17 04/21/17 04/21/17 Range/Units 20:15 20:15 20:15 WBC 8.0 (3.5-10.8) 10^3/ul RBC 3.59 L (4.0-5.4) 10^6/ul Hgb 10.7 L (12.0-16.0) g/dl Hct 32 L (35-47) % MCV 88 (80-97) fL MCH 30 (27-31) pg MCHC 34 (31-36) g/dl RDW 15 (10.5-15) % Plt Count 241 (150-450) 10^3/ul MPV 8 (7.4-10.4) um3 Neut % (Auto) 65.9 (38-83) % Lymph % (Auto) 23.6 L (25-47) % [place] % (Auto) 7.1 (1-9) % Eos % (Auto) 2.4 (0-6) % Baso % (Auto) 1.0 (0-2) % Absolute Neuts (auto) 5.3 (1.5-7.7) 10^3/ul Absolute Lymphs (auto) 1.9 (1.0-4.8) 10^3/ul Absolute Monos (auto) 0.6 (0-0.8) 10^3/ul Absolute Eos (auto) 0.2 (0-0.6) 10^3/ul Absolute Basos (auto) 0.1 (0-0.2) 10^3/ul Absolute Nucleated RBC 0 10^3/ul Nucleated RBC % 0 INR (Anticoag Therapy) (0.77-1.02) Sodium 137 (133-145) mmol/L Potassium 4.1 (3.5-5.0) mmol/L Chloride 103 (101-111) mmol/L Carbon Dioxide 28 (22-32) mmol/L Anion Gap 6 (2-11) mmol/L BUN 30 H (6-24) mg/dL Creatinine 0.93 (0.51-0.95) mg/dL Est GFR ( Amer) 73.5 (>60) Est GFR (Non-Af Amer) 57.2 (>60) BUN/Creatinine Ratio 32.3 H (8-20) Glucose 103 H (70-100) mg/dL Calcium 9.1 (8.6-10.3) mg/dL Total Bilirubin 0.20 (0.2-1.0) mg/dL AST 24 (13-39) U/L ALT 15 (7-52) U/L Alkaline Phosphatase 70 (34-104) U/L Total Protein 6.6 (6.4-8.9) g/dL Albumin 3.6 (3.2-5.2) g/dL Globulin 3.0 (2-4) g/dL Albumin/Globulin Ratio 1.2 (1-3) Blood Type O Positive Antibody Screen Negative Crossmatch See Detail 04/22/17 04/22/17 04/22/17 Range/Units 01:09 06:14 06:14 WBC (3.5-10.8) 10^3/ul RBC (4.0-5.4) 10^6/ul Hgb 8.8 L (12.0-16.0) g/dl Hct 27 L (35-47) % MCV (80-97) fL MCH (27-31) pg MCHC (31-36) g/dl RDW (10.5-15) % Plt Count (150-450) 10^3/ul MPV (7.4-10.4) um3 Neut % (Auto) (38-83) % Lymph % (Auto) (25-47) % [place] % (Auto) (1-9) % Eos % (Auto) (0-6) % Baso % (Auto) (0-2) % Absolute Neuts (auto) (1.5-7.7) 10^3/ul Absolute Lymphs (auto) (1.0-4.8) 10^3/ul Absolute Monos (auto) (0-0.8) 10^3/ul Absolute Eos (auto) (0-0.6) 10^3/ul Absolute Basos (auto) (0-0.2) 10^3/ul Absolute Nucleated RBC 10^3/ul Nucleated RBC % INR (Anticoag Therapy) 0.95 (0.77-1.02) Sodium 138 (133-145) mmol/L Potassium 4.6 (3.5-5.0) mmol/L Chloride 112 H (101-111) mmol/L Carbon Dioxide 22 (22-32) mmol/L Anion Gap 4 (2-11) mmol/L BUN 30 H (6-24) mg/dL Creatinine 0.79 (0.51-0.95) mg/dL Est GFR ( Amer) 88.7 (>60) Est GFR (Non-Af Amer) 69.0 (>60) BUN/Creatinine Ratio 38.0 H (8-20) Glucose 109 H (70-100) mg/dL Calcium 7.8 L (8.6-10.3) mg/dL Total Bilirubin (0.2-1.0) mg/dL AST (13-39) U/L ALT (7-52) U/L Alkaline Phosphatase (34-104) U/L Total Protein (6.4-8.9) g/dL Albumin (3.2-5.2) g/dL Globulin (2-4) g/dL Albumin/Globulin Ratio (1-3) Blood Type Antibody Screen Crossmatch 04/22/17 Range/Units 06:14 WBC 6.4 (3.5-10.8) 10^3/ul RBC 3.30 L (4.0-5.4) 10^6/ul Hgb 9.7 L (12.0-16.0) g/dl Hct 29 L (35-47) % MCV 87 (80-97) fL MCH 29 (27-31) pg MCHC 34 (31-36) g/dl RDW 15 (10.5-15) % Plt Count 190 (150-450) 10^3/ul MPV 9 (7.4-10.4) um3 Neut % (Auto) (38-83) % Lymph % (Auto) (25-47) % [place] % (Auto) (1-9) % Eos % (Auto) (0-6) % Baso % (Auto) (0-2) % Absolute Neuts (auto) (1.5-7.7) 10^3/ul Absolute Lymphs (auto) (1.0-4.8) 10^3/ul Absolute Monos (auto) (0-0.8) 10^3/ul Absolute Eos (auto) (0-0.6) 10^3/ul Absolute Basos (auto) (0-0.2) 10^3/ul Absolute Nucleated RBC 10^3/ul Nucleated RBC % INR (Anticoag Therapy) (0.77-1.02) Sodium (133-145) mmol/L Potassium (3.5-5.0) mmol/L Chloride (101-111) mmol/L Carbon Dioxide (22-32) mmol/L Anion Gap (2-11) mmol/L BUN (6-24) mg/dL Creatinine (0.51-0.95) mg/dL Est GFR ( Amer) (>60) Est GFR (Non-Af Amer) (>60) BUN/Creatinine Ratio (8-20) Glucose (70-100) mg/dL Calcium (8.6-10.3) mg/dL Total Bilirubin (0.2-1.0) mg/dL AST (13-39) U/L ALT (7-52) U/L Alkaline Phosphatase (34-104) U/L Total Protein (6.4-8.9) g/dL Albumin (3.2-5.2) g/dL Globulin (2-4) g/dL Albumin/Globulin Ratio (1-3) Blood Type Antibody Screen Crossmatch Assess/Plan/Problems-Billing Assessment: 87 F h/o dementia p/w GIB now comfort care - Patient Problems (1) Comfort measures only status Comment: atropine, morphine, ativan PRN (2) Dementia Comment: Now comfort measures only Plan for d/c to [facility] to sign on with hospice (3) GI bleed Comment: No more NSAID's. Omeprazole 20 mg bid ordered. Nephew understands that no blood tests or transfusions will be done.
[2017-04-25] MEDS: Mirtazapine TAB* 15 MG PO SCH (21:10)
[2017-04-26] MEDS: Omeprazole CAP* 20 MG PO SCH (09:41)
[2017-04-26] MEDS: Citalopram TAB* 10 MG PO SCH (09:41)
--- NOTE | 2017-04-27 11:32 | DS ---
CC: Skye Bain NP * DISCHARGE SUMMARY: DATE OF ADMISSION: 04/21/17 DATE OF DISCHARGE: 04/26/17 PRIMARY CARE PROVIDER: Skye Bain NP. PRIMARY DIAGNOSIS: Acute lower GI bleed. SECONDARY DIAGNOSIS: Includes comfort care measures. DISPOSITION ON DISCHARGE: To [facility]. MEDICATIONS ON DISCHARGE: 1. Senna 2 tabs twice daily. 2. Remeron 7.5 mg at bedtime. 3. Morphine oral concentrate 5 mg every 2 hours as needed. 4. Ativan 0.5 mg sublingual every 4 hours as needed. 5. Atropine 1% oral drops 2 drops sublingual every 2 hours as needed. HISTORY OF PRESENT ILLNESS AND HOSPITAL COURSE: This is an 87-year-old female with past medical history of dementia and anxiety, who had been living in [place] under the dementia unit, who presented to the hospital with bright red blood per rectum. Her hemoglobin was trended, nadired at 8.8, she received 1 unit of packed red blood cells, bleedings abated. However, the patient had deterioration in her mental status. Ultimately becoming alert and oriented x0 by the day of discharge. She was eating very little by the time she was discharged. She was evaluated by hospice services and accepted to the [facility] upon discharge. There were no other complications during the course of the hospital stay. She did have a repeat H and H prior to discharge, showing that she had stopped bleeding. Hemoglobin on discharge 9.9, higher than the previous value, 3 days prior. At followup: 1. Please ensure continued comfort measures. 2. No other specific labs or vitals that need followup. TIME SPENT: Greater than 30 minutes spent in discharge of this patient, greater than half the time was spent [id number] with the patient. [id number]/CPS #: [id number] MTDD
== END 2017-04-26 13:05 | disposition hospice, inpatient (51) | DRG 378 ==
LOC: ED 20:21 → MEDTELE 22:50 → UNDOADMOB 22:50 → INTOOBSV 04-22 06:54 → OBSVTOIN 04-22 06:54 → MEDTELE 04-24 14:23 → MED 04-24 14:23 → UNDODISIN 04-26 13:05
PROVIDERS: ADMIT Hospitalist; ATTEND Internal Medicine
PROC: 30233N1 Transfusion of Nonautologous Red Blood Cells into Peripheral Vein, Percutaneous Approach (ICD-10-PCS; principal; 2017-04-22)
DX: K92.2 Gastrointestinal hemorrhage, unspecified (principal); K86.1 Other chronic pancreatitis; F03.90 Unspecified dementia, unspecified severity, without behavioral disturbance, psychotic disturbance, mood disturbance, and anxiety; Z66 Do not resuscitate; Z51.5 Encounter for palliative care; F41.9 Anxiety disorder, unspecified; Z85.828 Personal history of other malignant neoplasm of skin; Z79.899 Other long term (current) drug therapy
CPT/HCPCS: 36415; 74019; 80048; 80053; 81003; 81015; 85014; 85018; 85025; 85027; 85610; 86850; 86900; 86901; 86922; 87086; 99284; A9270-GY; P9040